=== PATIENT | male | born 1945 | race Caucasian/White ===

== ENCOUNTER → 2019-10-27 13:35 | Outpatient (BNVA) | payer MEDICARE, BC, SELFPAY | PROVIDERS: Referring Provider Neuromusculoskeletal Medicine & OMM; Visit Provider Psychiatry & Neurology Neurology | DX: I63.89 Other cerebral infarction (principal); R79.89 Other specified abnormal findings of blood chemistry; R41.3 Other amnesia; I10 Essential (primary) hypertension | CPT/HCPCS: 99205 ==

== ENCOUNTER → 2019-12-02 09:15 | Outpatient (BNVA) | payer MEDICARE, BC, SELFPAY | PROVIDERS: Visit Provider Nurse Practitioner Adult Health | DX: R41.3 Other amnesia (principal); I10 Essential (primary) hypertension | CPT/HCPCS: 99214 ==

== ENCOUNTER 2019-12-16 05:34 | Outpatient (CLI) | payer MEDICARE, BC, SELFPAY ==
--- NOTE | 2019-12-21 18:04 | RESPIRATORY ---
RT received a fax at 18:00 on 12/21/19 from [facility] stating that they had not received transmissions for the patient referenced above for more than 2 days. The fax stated also that they had tried to contact the patient but were unsuccessful and requested our help in contacting him to fix the monitor issue. I called Mr. Rachel at 18:04 and was able to reach him, his monitor had been off, I talked him through turning it on and checking the phone screen to see the status of the monitor's battery and if it had good skin contact. I suggested that he keep and eye on the battery life of the monitor and to change it in a timely manner as it is currently at 34%. [facility] was then called to notify their Monitoring Center (spoke with Shilpi) that I received their fax and contacted the patient. [facility] asked that I have the patient go through an accidental push sequence to make sure that they are receiving transmissions from the monitor. I called the patient back and walked him through this successfully.
--- NOTE | 2020-01-22 08:35 | W.CARDEVENT ---
Date of service: 01/22/20 Time of Service: 08:35 Cardiac Event Recorder Referring Provider:: Juan Myers Indications:: cva Cardiac Event Note: This is a 30-day event monitor ordered for indication of CVA. ?The patient was in normal sinus rhythm for the majority of the recording with an average heart rate of 71 bpm. ?There were 0 detected arrhythmias. ?All patient triggered events were associated with sinus rhythm. ?There were no episodes of atrial fibrillation, no pauses greater than 3 seconds and no evidence of high degree heart block.
== END 2019-12-16 05:54 ==
PROVIDERS: PCP Neuromusculoskeletal Medicine & OMM; Visit Provider Psychiatry & Neurology Neurology
DX: I63.9 Cerebral infarction, unspecified (principal)
CPT/HCPCS: 93270

== ENCOUNTER 2020-01-22 08:35 | Outpatient (CLI) | payer MEDICARE, BC, SELFPAY | END 2020-01-22 08:55 | PROVIDERS: PCP Neuromusculoskeletal Medicine & OMM; Referring Provider Psychiatry & Neurology Neurology; Visit Provider Internal Medicine Cardiovascular Disease | DX: I63.9 Cerebral infarction, unspecified (principal) | CPT/HCPCS: 93272 ==

== ENCOUNTER → 2020-02-03 09:06 | Outpatient (BNVA) | payer MEDICARE, BC, SELFPAY | PROVIDERS: PCP Neuromusculoskeletal Medicine & OMM; Referring Provider Neuromusculoskeletal Medicine & OMM; Visit Provider Nurse Practitioner Adult Health | DX: G30.9 Alzheimer's disease, unspecified (principal); F02.80 Dementia in other diseases classified elsewhere, unspecified severity, without behavioral disturbance, psychotic disturbance, mood disturbance, and anxiety | CPT/HCPCS: 99213; 99442 ==

== ENCOUNTER → 2020-06-06 12:23 | Outpatient (BNVA) | payer MEDICARE, BC, SELFPAY | PROVIDERS: PCP Neuromusculoskeletal Medicine & OMM; Referring Provider Neuromusculoskeletal Medicine & OMM; Visit Provider Nurse Practitioner Adult Health | DX: I63.9 Cerebral infarction, unspecified (principal); G30.9 Alzheimer's disease, unspecified; F02.80 Dementia in other diseases classified elsewhere, unspecified severity, without behavioral disturbance, psychotic disturbance, mood disturbance, and anxiety | CPT/HCPCS: 99213; 99214 ==

== ENCOUNTER → 2020-08-29 10:43 | Outpatient (BNVA) | payer MEDICARE, BC, SELFPAY | PROVIDERS: PCP Neuromusculoskeletal Medicine & OMM; Referring Provider Neuromusculoskeletal Medicine & OMM; Visit Provider Psychiatry & Neurology Neurology | DX: I69.398 Other sequelae of cerebral infarction (principal); R25.1 Tremor, unspecified; R26.9 Unspecified abnormalities of gait and mobility; G30.9 Alzheimer's disease, unspecified; F02.80 Dementia in other diseases classified elsewhere, unspecified severity, without behavioral disturbance, psychotic disturbance, mood disturbance, and anxiety | CPT/HCPCS: 99215 ==

== ENCOUNTER → 2020-10-17 10:34 | Outpatient (BNVA) | payer MEDICARE, BC, SELFPAY | PROVIDERS: PCP Neuromusculoskeletal Medicine & OMM; Referring Provider Neuromusculoskeletal Medicine & OMM; Visit Provider Nurse Practitioner Adult Health | DX: G30.9 Alzheimer's disease, unspecified (principal); F02.80 Dementia in other diseases classified elsewhere, unspecified severity, without behavioral disturbance, psychotic disturbance, mood disturbance, and anxiety; F17.290 Nicotine dependence, other tobacco product, uncomplicated | CPT/HCPCS: 99213; 99215 ==

== ENCOUNTER 2021-01-23 03:37 | Outpatient (CLI) | payer OTHER, SELFPAY ==
[2021-01-23 11:43] LABS: Source Nasal/Nares
[2021-01-23 18:38] LABS: COVID-19 PCR Negative (Negative)
== END 2021-01-23 03:38 | disposition home or self-care (01) ==
LOC: LBO 03:38
PROVIDERS: PCP Neuromusculoskeletal Medicine & OMM; Visit Provider Surgery
DX: Z20.822 Contact with and (suspected) exposure to COVID-19 (principal); Z01.818 Encounter for other preprocedural examination
CPT/HCPCS: 87635

== ENCOUNTER 2021-01-24 06:12 | Day surgery (SDC) | payer OTHER, SELFPAY ==
--- NOTE | 2021-01-23 13:46 | ANES.PREOP_ITS ---
General Info Date of Service Date Performed: 01/24/21 Height: 5 ft 6 in Weight: 87.997 kg Body Mass Index (BMI): 31.3 Surgical Procedure: Operation Date: 01/24/21 07:35 Proposed Procedures Side Surgeon p Colonoscopy/Gastroscopy Nunu Petersen, DO Meds Allergies and Home Medications Allergies Allergy/AdvReac Type Severity Reaction Status Date / Time Iodinated Contrast Media Allergy Intermediate Hives Verified 01/24/21 06:39 NSAIDS (Non-Steroidal Allergy Intermediate GI bleeding Verified 01/24/21 06:39 Anti-Inflamma aspirin Allergy Unknown Kidneys Verified 01/24/21 06:39 Home Medication Medication Instructions Recorded amlodipine 10 mg tablet 10 mg PO DAILY 10/15/19 ascorbate calcium (vitamin C) 500 500 mg PO DAILY 10/15/19 mg tablet atorvastatin 40 mg tablet 40 mg PO DAILY 10/15/19 bupropion HCl 150 mg tablet,12 hr 150 mg PO BID 10/15/19 sustained-release clopidogrel 75 mg tablet 75 mg PO DAILY 10/15/19 cranberry extract 300 mg tablet 300 mg PO DAILY 10/15/19 donepezil 10 mg tablet 10 mg PO DAILY 10/27/19 antiarthritic combination no.2 900 900 mg PO DAILY tab 12/02/19 mg tablet memantine 10 mg tablet 10 mg PO BID #180 tab 09/20/20 ferrous gluconate 236 mg (27 mg 236 mg PO DAILY 01/09/21 iron) tablet metoprolol tartrate 25 mg tablet 25 mg PO DAILY 01/09/21 [facility] Active Problems Active Problems: Problem Status Onset Code Stroke I63.9 Elevated troponin R79.89 Memory loss R41.3 Anemia, iron deficiency, inadequate dietary intake D50.8 Malignant neoplasm of kidney C64.9 Gout M10.9 Hypertension I10 Gallstone K80.20 BPH (benign prostatic hyperplasia) N40.0 Alzheimer's dementia without behavioral disturbance G30.9, F02.80 Medical History Medical History Alzheimer's dementia without behavioral disturbance BPH (benign prostatic hyperplasia) Chronic sinusitis Cubital tunnel syndrome Depression Gallstone Goiter Gout History of CVA (cerebrovascular accident) 09/2019 History of degenerative joint disease Hypertension Malignant 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 with partial left nephrectomy/adrenalectomy 1989 Mild cognitive disorder Right carpal tunnel syndrome Single kidney Synovial cyst Surgical History Surgical History H/O decompression of ulnar nerve and transposition 04/2018 H/O parathyroidectomy History of adenoidectomy History of colonoscopy (~03/28/11) Done at [facility], normal exam History of tonsillectomy History of transurethral prostatectomy S/p nephrectomy R RCC s/p nephrectomy/adrenalectomy 1983 with partial left nephrectomy/adrenalectomy 1989 S/P TURP Tobacco Smoking/Tobacco Use Status: Former Tobacco Use Quit Status: considering quitting Alcohol Alcohol Intake: current Alcohol intake frequency: a few times a week Details: OCCASIONAL 2-3XS PER WEEK Substance Use Substance use: Never Substance use type: does not use Vital Signs and Lab Results Vital Signs Most Recent Vital Signs in EMR: Temp Pulse Resp BP Pulse Ox 36.3 C L 56 L 16 127/72 97 01/24/21 06:35 01/24/21 06:35 01/24/21 06:35 01/24/21 06:35 01/24/21 06:35 Lab Results Blood Type / Crossmatch: No Data to Display Complete Blood Count: No Data to Display Complete Metabolic Panel: No Data to Display Liver Function Panel: No Data to Display Coagulation Panel: No Data to Display Cardiac Panel: No Data to Display Arterial Blood Gas: No Data to Display Venous Blood Gas: No Data to Display Pancreas Panel: No Data to Display Thyroid Panel: No Data to Display Infectious Disease: Coronavirus (COVID-19)(PCR) Negative (Negative) 01/23/21 10:19 01/23/21 Coronavirus 2019 Source Nasal/Nares 01/23/21 10:19 01/23/21 Blood Cultures: No Data to Display Toxicology Panel: No Data to Display Anesthesia Assessment and Plan Anesthesia History Personal History: No History of Anesthesia Complications Family History: No Family History of Anesthesia Complications Exercise Tolerance Exercise Tolerance: Metabolic Equivalents>4 Cardiac & Pulmonary Exam Cardiac Exam: Normal S1/S2 Heart Sounds Pulmonary Exam: Clear Bilateral Breath Sounds Implantable Cardiac Device Does patient have a Pacemaker or an ICD?: No Airway Exam Known Difficult Airway: No Mallampati Class: 2 Mouth Opening: Normal (> 3cm) Thyromental Distance: Greater than 3 cm Neck Range of Motion: Limited ROM Neck Circumference: Normal Teeth Condition: Normal Dentition ASA Classification ASA Score: ASA 3 Emergency Case?: No NPO Status NPO Status: NPO Clears >2 hours, Solids >8 hours Anesthesia Plan Resuscitation Status: Full Code Anesthesia Technique: General Anesthesia Airway Planned: Natural Airway Monitors Used: Standard Monitors Preoperative Comments:: 75 yo male with anemia for EGD and screening colo. Sig PMHx: Alzheimer's dementia (donepezil, memantine), HTN (amlodipine, metoprolol), CVA 2020 (clopidogrel), s/p right nephrectomy, s/p partial left nephrectomy, smoker, occ EtOH Discussed risk of post operative cognitive dysfunction related to his alzheimers. All questions answered.
--- NOTE | 2021-01-23 21:55 | PDOC.DSDIS_ITS ---
Discharge Plan Disposition Patient Disposition: HOME Condition: Good Discharge Details Reason For Visit: stomach and colon scope Attending Provider: Nunu Petersen Primary Care Provider: Perico Rivera Home Meds and New Rx's Prescriptions: New pantoprazole [Protonix] 40 mg tablet,delayed release (DR/EC) 40 mg PO DAILY Qty: 30 RF: 12 sucralfate [Carafate] 1 gram tablet 1 g PO QHS Qty: 30 RF: 12 Continued donepezil 10 mg tablet 10 mg PO DAILY RF: 0 metoprolol tartrate 25 mg tablet 25 mg PO DAILY RF: 0 ferrous gluconate 236 mg (27 mg iron) tablet 236 mg PO DAILY RF: 0 glucosamine-chondroitin 900 mg tablet 900 mg PO DAILY RF: 0 amlodipine 10 mg tablet 10 mg PO DAILY RF: 0 atorvastatin 40 mg tablet 40 mg PO DAILY RF: 0 bupropion HCl 150 mg tablet sustained-release 12 hr 150 mg PO BID RF: 0 clopidogrel 75 mg tablet 75 mg PO DAILY RF: 0 cranberry extract 300 mg tablet 300 mg PO DAILY RF: 0 ascorbate calcium (vitamin C) 500 mg tablet 500 mg PO DAILY RF: 0 memantine [Namenda] 10 mg tablet 10 mg PO BID Qty: 180 RF: 3 Discharge Instructions Additional Instructions: DSU Colonoscopy Post- Op Instructions Instructions for Everyone who is given Anesthesia: For your safety, please do the following for the next twenty-four (24) hours: *Do Not operate a motor vehicle (car, truck, motorcycle, etc.) *Do Not drink alcoholic beverages or use any recreational drugs for the first 24 hours or while taking pain medications. The medications in your body may have a reaction that can be dangerous. *Do Not make any important decisions or sign any important papers. Findings:bile reflux gastritis-moderate hiatal hernia right sided diverticula polyps x3 Follow up: Does not need to repeat colonoscopy My office will send a letter in 2 to 3 weeks time detailing what types of polyps they were. -restart Plavix on SaturdayJanuary 30 -restart oral Iron on January 26 * prescription sent for Protonix & carafate 1. No lifting over 20 pounds or strenuous activity for the first 24 hours after your procedure. After 24 hours there are no restrictions on your activity but you may feel fatigued for a few days. 2. After you arrive home you may have a light meal and return to your normal diet as you can tolerate it without feeling sick to your stomach. 3. You may have a bloated, gaseous feeling in your belly (abdomen) after a colonoscopy. Passing gas and belching will help. Walking or lying down on your left side with your knees flexed may relieve the discomfort. Call the office at [phone] (Office) or [phone] (Hospital) right away if you notice any of the following: a.Vomiting of blood or ?coffee ground stools?. b.Rectal bleeding 1Tbsp, blood clots or continuous bleeding. c.Severe belly (abdominal) pain. d.A hard distended belly (abdomen) and an inability to pass gas. 4. Please don?t expect to have a normal BM (bowel movement) for 2-3 days after your procedure. 5. If there are questions regarding the findings of your procedure, please c ontact your doctor 6. If you are unable to contact your doctor with a problem, contact the hospital at [phone]. 7. Continue all your regular medications unless directed otherwise. I understand the above instructions and have no questions. Signature of Patient or Adult Escort Name of Responsible Adult Escort Signature of Nurse Date/Time Activity:: see above Diet:: see above Discharge Orders Discharge Orders: Discharge Order (Routine); Ordered 01/23/21 Ordered By: Nunu Petersen DS: Diagnosis Discharge Diagnosis (1) Anemia, iron deficiency, inadequate dietary intake: Status: Acute (2) Malignant neoplasm of kidney: Status: Chronic (3) Stroke: Status: Chronic (4) Memory loss: Status: Acute (5) BPH (benign prostatic hyperplasia): Status: Chronic (6) Adenomatous colon polyp: Status: Acute (7) Diverticula of colon: Status: Acute (8) Bile reflux gastritis: Status: Acute (9) Hiatal hernia: Status: Chronic
--- NOTE | 2021-01-23 21:57 | W.PM.ENDDOP ---
Date of service: 01/24/21 Endoscopy Report DATE OF PROCEDURE: 01/24/21 PRE-OP DIAGNOSIS: anemia POST-OP DIAGNOSIS: other (2cm hiatal hernia/patulous hiatus/right sided diverticula/x3 polyps) SURGEON: Nunu Petersen ANESTHESIA TYPE: General:No Airway ESTIMATED BLOOD LOSS: 1 PATHOLOGY: other COMPLICATIONS: None DISPOSITION: same day PREP: Miralax/Dulcolax PROCEDURE DESCRIPTION: After informed consent was obtained the patient was take to the procedure room and placed in a supine position. Monitors were applied and a time out was done. The patients name, date of , procedure type, allergies to medications and metal in their body was reviewed. A bite block was placed and the patient was sedated. Once sedated and comfortable the gastroscope was advanced through the oropharynx which was grossly normal into the esophagus. The proximal and mid-esophagus were nl. In the distal esophagus there hiatal hernia. There are no esophageal erosions, varices, diverticula or stricture. The scope was advanced into the stomach and through the pylorus into the 3rd portion of the duodenum. The duodenum was noted to be nl. Biopsies were done-all specimen is retrieved and no bleeding is noted. The scope was retracted back into the stomach and biopsies were done to rule out H. pylori. There were no ulcers. There is moderate gastritis in a striped fashion noted throughout the entire stomach. He does have significant bile in the stomach, and obviously bile reflux. The scope was retroflexed. The cardia and fundus were noted to be normal. There is a hiatal hernia noted-2cm. The hiatus was very patulous as well. The scope was retracted back into the esophagus and biopsies were done of the GE junction to rule out Garcia's. The Z line was regular. The scope was removed and exchanged.
--- NOTE | 2021-01-23 21:58 | W.COLOREPORT ---
Colonoscopy Report Date of procedure: 01/24/21 Pre-op diagnosis general: anemia Post-op diagnosis procedure note: other (diverticula/polyp) Surgeon: Nunu Petersen Anesthesia Type: General:No Airway Disposition: same day Prep: GoLYTELY Retraction Time: 12 Procedure Description: After informed consent was obtained the patient was taken to the procedure room and placed in a left decubitous position. Monitors were applied and a time out was done. The patients name, date of , procedure, allergies to medications and metal in their body was reviewed. The patient was then sedated. Once sedated and comfortable a rectal exam was done. External exam was normal. Internal exam revealed a normal sphincter tone and no palpable masses. The scope was then introduced and retrofelexed. No internal hemorrhoids were identified. The scope was then advanced to the cecum w/out difficulty. The TI and appendiceal orifice were identified. The prep was adequate. There was a significant amount of thin liquid stool that coated the rider. This was lavaged to an extent. The patient had hypotension so the procedure was completed polyps less than 5 mm may have been missed. However those are good be inconsequential to this patient. The scope was then slowly retracted over 12 minutes back into the rectum. He had right-sided diverticula. There were no signs of active bleeding or infection. Polyps were removed: he had 2 polyps- one is 1cm, and flat. It was removed with a hot biopsy forcep at 20 cm. He had another 5mm flat polyp that was removed with hot biopsy forcep in the rectum. All specimens are retrieved and no bleeding is noted. The scope was removed and the patient was woken up and taken back to Same day surgery in stable condition. The patient tolerated the procedure well and there were no immediate complications. Follow up: The patient does not need to repeat a colonoscopy, unless they develop changes in bowel habits or other new gastrointestinal complaints.
[2021-01-24 06:35] VITALS: BP 127/72; PULSE 56; RESP 16; TEMP 36.3; O2SAT 97
[2021-01-24 06:54] VITALS: BMI 31.3
[2021-01-24] MEDS: Normal Saline 1,000 ML 80 ML IV (07:00)
--- NOTE | 2021-01-24 07:50 | STOM_PTH ---
PATIENT: Venkatesh Rachel LOC: [facility] U#:[id number] AGE/SX: 75/M ROOM: RE01/24/[address]: Nunu Petersen : 1945 BED: DIS: 01/24/2021 SPEC #: [id number] RECD: 01/24/21 12:33 STATUS: [facility] #: [id number] JOAQUÍN: 01/24/21 07:[address]: Nunu Petersen DEPT: Surgical Specimen RECD BY: Laury Jo ENTERED: 01/24/21 12:37 SP TYPE: STOMACH OTHR DR: Perico Rivera Tissues: 1 - BIOPSY BOWEL 2 - STOMACH BIOPSY 3 - STOMACH BIOPSY 4 - HERNIA SAC,OTHER 5 - ESOPHAGUS BIOPSY 6 - ESOPHAGUS BIOPSY 7 - BIOPSY BOWEL 8 - BIOPSY BOWEL Procedures: GROSS AND MICRO LEVEL 4 Comments: [id number]
[2021-01-24 08:22] VITALS: BP 110/64; PULSE 63; RESP 20; TEMP 36.4; O2SAT 95
--- NOTE | 2021-01-24 08:36 | W.ANESPOSTOP ---
Postoperative Evaluation Date, Time and Location Date Performed: 01/24/21 Time Performed: 08:36 Patient Location: Day Surgery Unit Vital Signs Most Recent Imported Vital Signs: Most Recent Vital Signs Temp Pulse Resp BP Pulse Ox 36.4 C L 63 20 110/64 95 01/24/21 08:22 01/24/21 08:22 01/24/21 08:22 01/24/21 08:22 01/24/21 08:22 Pain Score Most Recent Pain Score: Most Recent Pain Score Pain Level 0 01/24/21 08:22 Assessment Mental Status: Awake (Alert & Oriented to Patient Baseline) Airway and Respiratory Function: Patent airway with normal (patient baseline) respiratory exam Cardiovascular Function: Hemodynamically Stable Hydration Status: Adequately Hydrated Nausea & Vomiting: No Nausea or Vomiting Pain: Pt. Denies Any Pain Peripheral Nerve Block: Patient did not receive a nerve block
[2021-01-24 08:54] VITALS: BP 137/87; PULSE 57; RESP 18; TEMP 36.2; O2SAT 96
[2021-01-24] MEDS: IRON SUCROSE COMPLEX 200 MG in Normal Saline 100 ML 400 MG IVPB (08:59)
== END 2021-01-24 09:45 | disposition home or self-care (01) ==
PROVIDERS: PCP Neuromusculoskeletal Medicine & OMM; Visit Provider Surgery
PROC: (CPT 45384; principal; 2021-01-24 07:30)
DX: D50.8 Other iron deficiency anemias (principal); K44.9 Diaphragmatic hernia without obstruction or gangrene; K29.70 Gastritis, unspecified, without bleeding; K63.5 Polyp of colon; K62.1 Rectal polyp; K57.30 Diverticulosis of large intestine without perforation or abscess without bleeding; G30.9 Alzheimer's disease, unspecified; Z86.73 Personal history of transient ischemic attack (TIA), and cerebral infarction without residual deficits; F02.80 Dementia in other diseases classified elsewhere, unspecified severity, without behavioral disturbance, psychotic disturbance, mood disturbance, and anxiety
CPT/HCPCS: 45384; 43239; 88305; 88302; J1756; J2001

== ENCOUNTER → 2021-10-23 09:37 | Outpatient (BNVA) | payer MEDICARE, BC, SELFPAY | PROVIDERS: PCP Neuromusculoskeletal Medicine & OMM; Referring Provider Neuromusculoskeletal Medicine & OMM; Visit Provider Nurse Practitioner Adult Health | DX: G30.9 Alzheimer's disease, unspecified (principal); F02.80 Dementia in other diseases classified elsewhere, unspecified severity, without behavioral disturbance, psychotic disturbance, mood disturbance, and anxiety; F01.50 Vascular dementia, unspecified severity, without behavioral disturbance, psychotic disturbance, mood disturbance, and anxiety | CPT/HCPCS: 99213 ==

== ENCOUNTER 2022-02-23 07:22 | Day surgery (SDC) | payer MEDICARE, BC, SELFPAY ==
[2022-02-23 07:30] VITALS: BP 137/82; PULSE 74; RESP 16; TEMP 36.4; O2SAT 97
[2022-02-23] MEDS: Tropicam./Phenyleph. (1/2.5%) 5 ML BTL OS ×3 (08:16→08:30)
--- NOTE | 2022-02-23 08:51 | W.ANESPRE ---
General Info Date of Service Date Performed: 02/23/22 Height: 5 ft 6.5 in Weight: 88.5 kg Body Mass Index (BMI): 31.0 Surgical Procedure: Operation Date: 02/23/22 09:40 Proposed Procedure Side Surgeon p Cataract Extraction with IOL Implant Left Ramses Mobley MD Meds Allergies and Home Medications Allergies Allergy/AdvReac Type Severity Reaction Status Date / Time Iodinated Contrast Media Allergy Intermediate Hives Verified 02/23/22 08:05 NSAIDS (Non-Steroidal Allergy Intermediate GI bleeding Verified 02/23/22 08:05 Anti-Inflamma aspirin Allergy Unknown Kidneys Verified 02/23/22 08:05 Home Medication Medication Instructions Recorded amlodipine 10 mg tablet 10 mg PO DAILY 10/15/19 ascorbate calcium (vitamin C) 500 500 mg PO DAILY 10/15/19 mg tablet atorvastatin 40 mg tablet 40 mg PO DAILY 10/15/19 bupropion HCl 150 mg tablet,12 hr 150 mg PO BID 10/15/19 sustained-release cranberry extract 300 mg tablet 300 mg PO DAILY 10/15/19 antiarthritic combination no.2 900 900 mg PO DAILY 12/02/19 mg tablet (glucosamine-chondroitin) memantine 10 mg tablet (Namenda) 10 mg PO BID #180 tabs 09/20/20 mecobalamin (vitamin B12) 1,000 1,000 mcg PO DAILY 10/23/21 mcg chewable tablet clopidogrel 75 mg tablet 1 tab PO DAILY 02/23/22 Current Visit Medications: Current Medications Generic Name Dose Route Start Last Admin Trade Name Andrzejq PRN Reason Stop Dose Admin Acetaminophen 1,000 mg 02/23/22 06:00 Acetaminophen 500 Mg Tab PO Q4H PRN PRN Miscellaneous Medication 0 ml 02/23/22 06:00 Prednisolone 1%, Moxifloxacin 0.5%, Nepafenac 0.1% 5ml Btl OS DIRECTED COUNTS INCLUDE 234 BEDS AT THE [facility] Miscellaneous Medication 0 ml 02/23/22 06:00 02/23/22 08:30 Tropicam./Phenyleph. (1/2.5%) 5 Ml Btl OS 1 drp DIRECTED ESTEFANY Administration Tetracaine HCl 0 ml 02/23/22 06:00 Tetracaine 0.5% 4 Ml Btl OS DIRECTED COUNTS INCLUDE 234 BEDS AT THE [facility] PFSH Active Problems Active Problems: Problem Status Onset Code Vascular dementia F01.50 Hiatal hernia K44.9 Bile reflux gastritis K29.60 Diverticula of colon K57.30 Adenomatous colon polyp D12.6 Stroke I63.9 Elevated troponin R79.89 Memory loss R41.3 Anemia, iron deficiency, inadequate dietary intake D50.8 Malignant neoplasm of kidney C64.9 Gout M10.9 Hypertension I10 Gallstone K80.20 BPH (benign prostatic hyperplasia) N40.0 Alzheimer's dementia without behavioral disturbance G30.9, F02.80 Medical History Medical History Chronic sinusitis Cubital tunnel syndrome Depression Goiter History of CVA (cerebrovascular accident) 09/2019 History of degenerative joint disease Mild cognitive disorder Right carpal tunnel syndrome Single kidney Synovial cyst Surgical History Surgical History H/O decompression of ulnar nerve and transposition 04/2018 H/O parathyroidectomy History of adenoidectomy History of colonoscopy (~03/28/11) Done at [facility], normal exam History of colonoscopy with polypectomy (~01/24/21) History of esophagogastroduodenoscopy (EGD) (~01/24/21) History of tonsillectomy History of transurethral prostatectomy S/p nephrectomy R RCC s/p nephrectomy/adrenalectomy 1982 with partial left nephrectomy/adrenalectomy 1989 S/P TURP Tobacco Smoking/Tobacco Use Status: Current-Occasional Tobacco Type: cigars Alcohol Alcohol Intake: current Alcohol intake frequency: a few times a week Alcohol type: beer, wine and hard liquor Details: OCCASIONAL 2-3XS PER WEEK Substance Use Substance use: Never Substance use type: does not use Vital Signs and Lab Results Vital Signs Most Recent Vital Signs in EMR: Most Recent Vital Signs Temp Pulse Resp BP Pulse Ox 36.4 C L 74 16 137/82 97 02/23/22 07:30 02/23/22 07:30 02/23/22 07:30 02/23/22 07:30 02/23/22 07:30 Lab Results Blood Type / Crossmatch: No Data to Display Complete Blood Count: No Data to Display Complete Metabolic Panel: No Data to Display Liver Function Panel: No Data to Display Coagulation Panel: No Data to Display Cardiac Panel: No Data to Display Arterial Blood Gas: No Data to Display Venous Blood Gas: No Data to Display Pancreas Panel: No Data to Display Thyroid Panel: No Data to Display Infectious Disease: No Data to Display Blood Cultures: No Data to Display Toxicology Panel: No Data to Display Anesthesia Assessment and Plan Anesthesia History Personal History: No History of Anesthesia Complications Family History: No Family History of Anesthesia Complications Exercise Tolerance Exercise Tolerance: Metabolic Equivalents>4 Pertinent Negatives Pertinent Negatives: No Symptoms of GERD and No History of CVA/TIA (CVA 3 years ago only residual is decreased peripheral vision ) Cardiac & Pulmonary Exam Cardiac Exam: Normal S1/S2 Heart Sounds Pulmonary Exam: Clear Bilateral Breath Sounds Implantable Cardiac Device Does patient have a Pacemaker or an ICD?: No Airway Exam Known Difficult Airway: No Mallampati Class: 2 Mouth Opening: Normal (> 3cm) Thyromental Distance: Greater than 3 cm Neck Range of Motion: Limited ROM Neck Circumference: Normal Teeth Condition: Normal Dentition ASA Classification ASA Score: ASA 2 Emergency Case?: No NPO Status NPO Status: NPO Clears >2 hours, Solids >8 hours Anesthesia Plan Resuscitation Status: Full Code Anesthesia Technique: MAC Anesthesia Airway Planned: Natural Airway Monitors Used: Standard Monitors
[2022-02-23 08:54] VITALS: BMI 31.0
[2022-02-23] MEDS: Balanced Salt Soln.-PLUS 500 ML BAG (09:25)
[2022-02-23] MEDS: Tetracaine 0.5% 4 ML BTL OS (09:25)
[2022-02-23] MEDS: Duovisc Viscoelastic System EACH 1 EACH (09:26)
[2022-02-23] MEDS: Lidocaine 2% Jelly 6 ML SYR (09:26)
[2022-02-23] MEDS: Povidone-Iodine Ophth 30 ML BTL (09:27)
[2022-02-23 10:05] VITALS: BP 133/75; PULSE 62; RESP 16; TEMP 36.5; O2SAT 97
--- NOTE | 2022-02-23 10:05 | W.PM.DSUDISC ---
Date of service: 02/23/22 Time of Service: 10:06 Discharge Plan Disposition Patient Disposition: HOME Condition: Good Discharge Details Attending Provider: Ramses Mobley Primary Care Provider: Perico Rivera [facility] and New Rx's Prescriptions: No Action glucosamine-chondroitin 900 mg tablet 900 mg PO DAILY mecobalamin (vitamin B12) 1,000 mcg tablet,chewable 1,000 mcg PO DAILY amlodipine 10 mg tablet 10 mg PO DAILY atorvastatin 40 mg tablet 40 mg PO DAILY bupropion HCl 150 mg tablet sustained-release 12 hr 150 mg PO BID cranberry extract 300 mg tablet 300 mg PO DAILY Rx Instructions: administer with a meal ascorbate calcium (vitamin C) 500 mg tablet 500 mg PO DAILY memantine [Namenda] 10 mg tablet 10 mg PO BID Qty: 180 3RF clopidogrel 75 mg tablet 1 tab PO DAILY Discharge Instructions Stand Alone Forms: Post-op Topical Cataract, Leigh Ann Cerna (DSU) DS: Diagnosis Discharge Diagnosis (1) Nuclear sclerotic cataract of left eye: Status: Resolved (2) Cortical cataract of left eye: Status: Resolved
--- NOTE | 2022-02-23 10:06 | W.PM.OP ---
Date of service: 02/23/22 Time of Service: 10:06 Operative Note Operative Note DATE OF PROCEDURE: 02/23/22 PRE-OP DIAGNOSIS: Nuclear/cortical cataract, left eye POST-OP DIAGNOSIS: same PROCEDURE: Cataract extraction using phacoemulsification with intraocular lens implant, left eye SURGEON: Ramses Mobley ANESTHESIA TYPE: Local By Surgeon and MAC Refer to Anesthesia Record PATHOLOGY: none sent COMPLICATIONS: None Patient was transported to: same day Patient's condition: stable Implants: [employer] / [employer] Tecnis [id number] Indications: Progressive decreased vision due to cataract, left eye Procedure Description: CATARACT SURGERY OPERATIVE REPORT PREOPERATIVE DIAGNOSIS: 1. Nuclear/cortical cataract, left eye POSTOPERATIVE DIAGNOSIS: Same OPERATION: 1. Cataract extraction using phacoemulsification with posterior chamber intraocular lens implant, left eye. IOL: IOL Hydrator Operator/Model: [employer] / DERIC Tecnis [id number] IOL Power: + 17.0 diopters IOL Serial Number: [id number] Optic Diameter: 6.0 mm Haptic/Overall Diameter: 13.0 mm PHACO INFO: [address] [employer] Ion Vision System with OZil and [employer] Cumulative Dispersed Energy (CDE): 15.56 seconds SURGEON: Ramses Mobley MD, SYL ANESTHESIA: Monitored A [facility] (MAC), with local sub-tenon's anesthetic infiltration COMPLICATIONS: None SPECIMENS: None INDICATIONS FOR PROCEDURE: The patient is a 76-year-old gentleman with history of diminished visual acuity in his left eye secondary to the development of significant nuclear/cortical cataract. The option of cataract surgery was offered to the patient and he wished to proceed. He has a history of CVA with right superior quadrantanopia. He is aware that postoperative visual acuity will be limited by the presence of his pre-existing visual field defect. PROCEDURE: The correct surgical eye was identified and marked as the left eye and the pupil was dilated in the preoperative area using mydriatics and cycloplegics. The dilated pupil size was 6.0 mm. The patient elected to proceed without oral sedation. The patient was brought to the operating room where cardiopulmonary monitoring was instituted and surgical time-out was performed, confirming the correct operative eye and IOL power. Topical anesthesia was administered and ophthalmic povidone-iodine 5% was instilled into the conjunctival fornices. Lidocaine gel was applied to the cornea and the chacha-ocular area was prepped with Betadine 10% solution and draped in the usual sterile fashion for intraocular surgery, including an aperture drape. A Tegaderm transparent film dressing was cut in half and used to cover the lashes and lid margins. Care was taken to sequester the lashes and lid margins under the Tegaderm dressing. A lid speculum was placed between the lids of the operative eye and the [place] [employer] operating microscope was maneuvered into position. Significant blepharospasm was noted. Sae scissors were then used to make a conjunctival buttonhole approximately 6mm posterior to the limbus in the inferonasal quadrant. Blunt dissection was carried out to expose bare sclera, and a blunt-tipped sub-tenon?s anesthesia cannula was introduced and passed posteriorly along the globe where non-preserved plain lidocaine was injected into posterior sub-Tenon?s space. A sideport knife was used to make a paracentesis port superiorly/superiortemporally. Intraocular phenylephrine/lidocaine was injected int the anterior chamber.. The anterior chamber was filled with viscoelastic. A keratome knife was used to construct a 2-plane near-clear corneal tunnel extending 2.0mm into clear cornea temporally. A flap was raised on the anterior capsule and capsulorhexis forceps were used to complete a continuous curvilinear capsulorhexis of 5.0 mm. The anterior capsule was noted to be quite thin. The patient exhibited constant/wild eye movements, making capsulorhexis and subsequent maneuvers challenging. Balanced salt solution was then used to perform cortical cleaving hydrodissection and nuclear hydrodelineation until the lens could be freely rotated within the capsular bag. The lens nucleus was then disassembled and removed within the capsular bag and iris plane using phacoemulsification. Multiple attempts at correcting the nucleus were made, but unsuccessful. Additional [place] dissection was performed, prolapsing the nucleus into the pupillary space. Residual cortical material was removed using the 45-degree angled silicone I/A tip with 0.3mm port. The posterior capsule was carefully polished to remove as much residual lens epithelial cells as safely possible. The capsular bag was then inflated and the anterior chamber deepened with viscoelastic. The lens implant described above was inserted into the capsular bag using the DERIC [place] Injector. A Kuglen hook was used to dial the IOL into position. Residual viscoelastic was then removed first from posterior to the IOL, then from the anterior chamber using the I/A handpiece. The lens implant was noted to center nicely within the capsular bag. The incisions were stromally hydrated, and the anterior chamber was reformed using BSS. Then 0.5cc of moxifloxacin 1.0mg/ml were injected into the capsular bag and anterior chamber. The incisions were checked with a Weck spear and found to be secure. Several drops of ophthalmic povidone-iodine 5% were then applied to the eye followed by two drops of Imprimis combination prednisolone/moxifloxacin/nepafenac solution. The drapes were removed and a clear plastic protective eye shield was placed over the eye. The patient was then returned to Same Day Surgery in stable condition.
--- NOTE | 2022-02-23 10:06 | W.ANESPOSTOP ---
Postoperative Evaluation Date, Time and Location Date Performed: 02/23/22 Time Performed: 10:07 Patient Location: Day Surgery Unit Vital Signs Most Recent Imported Vital Signs: Most Recent Vital Signs Temp Pulse Resp BP Pulse Ox 36.4 C L 74 16 137/82 97 02/23/22 07:30 02/23/22 07:30 02/23/22 07:30 02/23/22 07:30 02/23/22 07:30 Most Recent Manually Entered Vital Signs: Adult Blood Pressure: 133/75 Heart Rate: 56 Respirations: 12 Oxygen Saturation (%): 98 Temperature (C): 36.3 C Pain Score (0-10 Scale): 0 Pain Score Most Recent Pain Score: Most Recent Pain Score Pain Level 0 02/23/22 07:30 Assessment Mental Status: Awake (Alert & Oriented to Patient Baseline) Airway and Respiratory Function: Patent airway with normal (patient baseline) respiratory exam Cardiovascular Function: Hemodynamically Stable Hydration Status: Adequately Hydrated Nausea & Vomiting: No Nausea or Vomiting Pain: Pt. Denies Any Pain Peripheral Nerve Block: Patient did not receive a nerve block
[2022-02-23 10:07] VITALS: BP 133/75; PULSE 56; RESP 12; TEMPC 36.3; O2SAT 98
== END 2022-02-23 10:28 | disposition home or self-care (01) ==
PROVIDERS: PCP Neuromusculoskeletal Medicine & OMM; Visit Provider Ophthalmology
PROC: (CPT 66984; principal; 2022-02-23 09:30)
DX: H25.812 Combined forms of age-related cataract, left eye (principal)
CPT/HCPCS: 66984; V2632

== ENCOUNTER → 2022-04-23 09:24 | Outpatient (BNVA) | payer MEDICARE, BC, SELFPAY | PROVIDERS: PCP Neuromusculoskeletal Medicine & OMM; Referring Provider Neuromusculoskeletal Medicine & OMM; Visit Provider Nurse Practitioner Adult Health | DX: F17.210 Nicotine dependence, cigarettes, uncomplicated (principal); G30.9 Alzheimer's disease, unspecified; F02.80 Dementia in other diseases classified elsewhere, unspecified severity, without behavioral disturbance, psychotic disturbance, mood disturbance, and anxiety; F01.50 Vascular dementia, unspecified severity, without behavioral disturbance, psychotic disturbance, mood disturbance, and anxiety | CPT/HCPCS: 99213 ==

== ENCOUNTER → 2022-10-23 09:47 | Outpatient (BNVA) | payer MEDICARE, BC, SELFPAY | PROVIDERS: PCP Neuromusculoskeletal Medicine & OMM; Visit Provider Nurse Practitioner Adult Health | DX: G30.9 Alzheimer's disease, unspecified (principal); F02.80 Dementia in other diseases classified elsewhere, unspecified severity, without behavioral disturbance, psychotic disturbance, mood disturbance, and anxiety; F01.50 Vascular dementia, unspecified severity, without behavioral disturbance, psychotic disturbance, mood disturbance, and anxiety; F17.290 Nicotine dependence, other tobacco product, uncomplicated; R29.6 Repeated falls; I10 Essential (primary) hypertension; R53.81 Other malaise | CPT/HCPCS: 99213 ==

== ENCOUNTER → 2023-05-14 13:53 | Outpatient (BNVA) | payer MEDICARE, BC, SELFPAY | PROVIDERS: PCP Neuromusculoskeletal Medicine & OMM; Referring Provider Neuromusculoskeletal Medicine & OMM; Visit Provider Nurse Practitioner Adult Health | DX: G30.9 Alzheimer's disease, unspecified (principal); F02.80 Dementia in other diseases classified elsewhere, unspecified severity, without behavioral disturbance, psychotic disturbance, mood disturbance, and anxiety; W19.XXXA Unspecified fall, initial encounter | CPT/HCPCS: 99214 ==

== ENCOUNTER → 2023-11-12 12:56 | Outpatient (BNVA) | payer MEDICARE, BC, SELFPAY | PROVIDERS: PCP Neuromusculoskeletal Medicine & OMM; Visit Provider Nurse Practitioner Adult Health | DX: G30.9 Alzheimer's disease, unspecified (principal); F02.80 Dementia in other diseases classified elsewhere, unspecified severity, without behavioral disturbance, psychotic disturbance, mood disturbance, and anxiety; F01.50 Vascular dementia, unspecified severity, without behavioral disturbance, psychotic disturbance, mood disturbance, and anxiety; R29.6 Repeated falls; R53.81 Other malaise | CPT/HCPCS: 99213 ==

== ENCOUNTER → 2024-05-19 10:46 | Outpatient (BNVA) | payer MEDICARE, BC, SELFPAY | PROVIDERS: PCP Neuromusculoskeletal Medicine & OMM; Referring Provider Neuromusculoskeletal Medicine & OMM; Visit Provider Nurse Practitioner Adult Health | DX: G30.9 Alzheimer's disease, unspecified (principal); F02.80 Dementia in other diseases classified elsewhere, unspecified severity, without behavioral disturbance, psychotic disturbance, mood disturbance, and anxiety; F01.50 Vascular dementia, unspecified severity, without behavioral disturbance, psychotic disturbance, mood disturbance, and anxiety; F17.210 Nicotine dependence, cigarettes, uncomplicated; I10 Essential (primary) hypertension | CPT/HCPCS: 99214 ==

== ENCOUNTER → 2024-11-23 10:32 | Outpatient (BNVA) | payer MEDICARE, BC, SELFPAY | PROVIDERS: PCP Neuromusculoskeletal Medicine & OMM; Referring Provider Neuromusculoskeletal Medicine & OMM; Visit Provider Nurse Practitioner Adult Health | DX: G30.9 Alzheimer's disease, unspecified (principal); F02.80 Dementia in other diseases classified elsewhere, unspecified severity, without behavioral disturbance, psychotic disturbance, mood disturbance, and anxiety; F01.50 Vascular dementia, unspecified severity, without behavioral disturbance, psychotic disturbance, mood disturbance, and anxiety | CPT/HCPCS: 99214 ==